=== PATIENT | male | born 1990 | race Two or more races ===

== ENCOUNTER 2024-08-25 09:28 | Observation (INO) | payer SELFPAY ==
[2024-08-25 12:31] LABS: BASO % 0.3 % (0-2.0); EOS % 1.5 % (0-4.5); HEMATOCRIT 33.2 % (35.4-49); HEMOGLOBIN 11.2 GM/dL (11.7-16.9); LYMPH % 23.7 % (8-40); MCH 26.4 pg (25.7-33.7); MCHC 33.6 g/dl (32.0-35.9); MEAN CELL VOLUME 78.7 fl (80-96); MEAN PLT VOLUME 7.6 fl (7.5-11.1); MONO % 16.8 % (3.8-10.2); NEUT % 57.7 % (42.8-82.8); PLATELET COUNT 280 10^3/uL (134-434); RBC 4.22 M/mm3 (4.00-5.60); RDW 13.6 % (11.9-15.9); WHITE BLOOD COUNT 5.7 K/mm3 (4.0-10.0)
[2024-08-25 12:54] LABS: CHLORIDE 107 mmol/L (98-107); POTASSIUM 3.7 mmol/L (3.5-5.1); SODIUM 141 mmol/L (136-145)
[2024-08-25 12:56] LABS: CALCIUM 10.6 mg/dL (8.5-10.1)
[2024-08-25 12:57] LABS: ALBUMIN 3.6 g/dl (3.4-5.0); ANION GAP 6 mmol/L (4-13); BLOOD UREA NITROGEN 11.6 mg/dL (7-18); CO2 28 mmol/L (21-32); GLUCOSE,RANDOM 93 mg/dL (74-106)
[2024-08-25 13:00] LABS: CREATININE 0.5 mg/dL (0.55-1.3); SGOT/AST 25 U/L (15-37); SGPT/ALT 51 U/L (13-61)
[2024-08-25 13:01] LABS: BILIRUBIN,TOTAL 0.7 mg/dL (0.2-1); TOT PROT 6.7 g/dl (6.4-8.2)
[2024-08-25 13:02] LABS: ALK PHOS 111 U/L (45-117)
[2024-08-25] MEDS: propRANOLol HCL 10 MG TABLET PO ONE (14:36)
[2024-08-25 14:44] LABS: COCAINE, UR NEGATIVE (NEGATIVE); URINE BARBITURATES NEGATIVE (NEGATIVE)
[2024-08-25 14:45] LABS: METHADONE, UR NEGATIVE (NEGATIVE); OPIATES, URI NEGATIVE (NEGATIVE); PHENCYCLIDINE,URINE NEGATIVE (NEGATIVE)
[2024-08-25 14:46] LABS: URINE BENZODIAZEPINES NEGATIVE (NEGATIVE)
[2024-08-25 14:56] LABS: URINE AMPHETAMINES NEGATIVE (NEGATIVE)
[2024-08-25] MEDS: METOPROLOL TARTRATE 25 MG TABLET (FP) PO SCH (21:19)
[2024-08-25] MEDS ORDERED: METOPROLOL TARTRATE 25 MG TABLET (FP) ONE (21:20)
[2024-08-25 22:17] LABS: HIV INTERPRETATION NEGATIVE (NEGATIVE)
[2024-08-25] MEDS ORDERED: METHIMAZOLE 5 MG TABLET PO SCH ×2 (23:00)
[2024-08-25] MEDS: METHIMAZOLE 10 MG TABLET PO SCH (23:54)
[2024-08-26 10:46] LABS: HEMATOCRIT 33.4 % (35.4-49); HEMOGLOBIN 11.3 GM/dL (11.7-16.9); MCH 26.5 pg (25.7-33.7); PLATELET COUNT 293 10^3/uL (134-434); RBC 4.28 M/mm3 (4.00-5.60); RDW 13.5 % (11.9-15.9); WHITE BLOOD COUNT 4.3 K/mm3 (4.0-10.0)
[2024-08-26 11:06] LABS: POTASSIUM 3.8 mmol/L (3.5-5.1)
[2024-08-26 11:10] LABS: ALBUMIN 3.2 g/dl (3.4-5.0); BLOOD UREA NITROGEN 16.4 mg/dL (7-18); MAGNESIUM 1.8 mg/dL (1.8-2.4)
[2024-08-26 11:13] LABS: CREATININE 0.5 mg/dL (0.55-1.3)
[2024-08-26 11:14] LABS: PHOSPHOROUS 3.3 mg/dL (2.5-4.9)
[2024-08-26 11:15] LABS: BILIRUBIN,TOTAL 0.8 mg/dL (0.2-1); TOT PROT 6.1 g/dl (6.4-8.2)
[2024-08-26 14:44] VITALS: BMI 22.4
[2024-08-26 15:25] VITALS: BP 131/61; PULSE 87; RESP 18; TEMP 98.4
== END 2024-08-26 17:15 | disposition home or self-care (01) ==
LOC: JER 09:28 → JERBED 14:35 → J4W 22:17
PROVIDERS: ADMIT Internal Medicine; ATTEND Internal Medicine
CPT/HCPCS: 36415; 71046-TC-FY; 80053; 80307; 83735; 84100; 84439; 84443; 84479; 84481; 84484; 85025; 85027; 86803; 87389; 93005; 93010; 99285-25; G0378